=== PATIENT | male | born 1975 | race Caucasian/White ===

== ENCOUNTER 2018-12-05 07:58 | Inpatient (IN) | payer OTHER ==
[2018-12-05] MEDS: SODIUM CHLORIDE 0.9% 1L BAG IV* (08:05)
[2018-12-05 08:19] LABS: ADD MAN DIFF? NO
[2018-12-05] MEDS: FAMOTIDINE 20 MG INJ IV (08:19)
[2018-12-05] MEDS: SOD CHLORIDE 0.9% 1,000 ML IV ×4 (08:19→16:36)
[2018-12-05 08:26] LABS: WHITE BLOOD COUNT 8.2 10^3/ul (4.8-10.8)
[2018-12-05 08:26] LABS: BASOPHIL # 0.1 10^3/ul (0.0-0.1); BASOPHILS % 0.6 % (0.0-2.0); EOSINOPHILS # 0.2 10^3/ul (0.0-0.5); EOSINOPHILS % 2.7 % (0.0-7.0); HEMATOCRIT 37.8 % (42.0-52.0); HEMOGLOBIN 11.3 g/dl (14.0-18.0); LYMPHOCYTES # 2.2 10^3/ul (0.8-2.9); LYMPHOCYTES % 26.8 % (15.0-51.0); MEAN CORPUSCULAR HEMOGLOBIN 23.4 pg (29.0-33.0); MEAN CORPUSCULAR HGB CONC 29.9 g/dl (32.0-37.0); MEAN CORPUSCULAR VOLUME 78.3 fl (82.0-101.0); MEAN PLATELET VOLUME 9.4 fl (7.4-10.4); MONOCYTE # 0.4 10^3/ul (0.3-0.9); MONOCYTES % 5.3 % (0.0-11.0); NEUTROPHIL # 5.2 10^3/ul (1.6-7.5); NEUTROPHILS % 63.5 % (39.0-77.0); PLATELET COUNT 287 10^3/UL (140-415); RED BLOOD COUNT 4.83 10^6/ul (4.70-6.10); RED CELL DISTRIBUTION WIDTH 16.5 % (11.5-14.5)
[2018-12-05] MEDS: AMIODARONE 150 MG INJ IV (08:26)
[2018-12-05 08:46] LABS: PARTIAL THROMBOPLASTIN TIME 27.5 Sec (23.0-35.0); PROTIME 14.3 Sec (11.9-14.9); PT RATIO 1.1
[2018-12-05] MEDS: CEFEPIME 2GM/50 ML (PMX) 50 ML IVPB (09:02)
[2018-12-05 09:06] LABS: AMMONIA 24 umol/l (9-30)
[2018-12-05 09:10] LABS: LACTIC ACID 2.9 mmol/L (0.5-2.0)
[2018-12-05 09:13] LABS: ALANINE AMINOTRANSFERASE 24 IU/L (13-69); ALBUMIN 3.9 g/dl (3.3-4.9); ALBUMIN/GLOBULIN RATIO 1.18; ALKALINE PHOSPHATASE 102 IU/L (42-121); ANION GAP 11 (5-13); ASPARTATE AMINO TRANSFERASE 32 IU/L (15-46); BILIRUBIN,INDIRECT 1.3 mg/dl (0-1.1); BILIRUBIN,TOTAL 1.3 mg/dl (0.2-1.3); BLOOD UREA NITROGEN 19 mg/dl (7-20); CALCIUM 8.6 mg/dl (8.4-10.2); CARBON DIOXIDE 25 mmol/L (21-31); CHLORIDE 104 mmol/L (97-110); CREATINE KINASE 129 IU/L (23-200); CREATININE 1.17 mg/dl (0.61-1.24); Estimated GFR > 60 mL/min (>60); GLUCOSE 165 mg/dl (70-220); POTASSIUM 3.4 mmol/L (3.5-5.1); SODIUM 140 mmol/L (135-144); TOTAL PROTEIN 7.2 g/dl (6.1-8.1)
[2018-12-05 09:16] LABS: ACETAMINOPHEN < 10.0 ug/ml (10.0-30.0); ETHANOL < 10.0 mg/dl (0-0); SALICYLATE < 1.0 mg/dl (5.0-30.0)
[2018-12-05 09:24] LABS: CK INDEX 2.2; CK-MB 2.84 ng/ml (0.0-2.4); TROPONIN-I 0.025 ng/ml (0.000-0.120)
[2018-12-05 09:37] LABS: D-DIMER 3965.54 ng/ml (<460)
[2018-12-05] MEDS: IOHEXOL 100 ML (09:43)
[2018-12-05] MEDS: VANCOMYCIN 1 GM (PMX) 250 ML IVPB (09:52)
[2018-12-05 09:53] LABS: FREE THYROXINE INDEX (Calc) 2.18 ug/ml (0.65-3.89); T3 UPTAKE 33.6 % (23.5-40.5); T4 (THYROXINE) 6.5 ug/dl (5.5-11.0)
[2018-12-05] MEDS: FENTAnyl 50 MCG/ML VIAL IV (10:01)
[2018-12-05] MEDS: SOD CHLORIDE 0.9% 100 ML (10:31)
[2018-12-05] MEDS ORDERED: ACETAMINOPHEN 325 MG TAB PO (11:00)
[2018-12-05] MEDS ORDERED: ONDANSETRON 4 MG INJ IV (11:00)
[2018-12-05] MEDS ORDERED: NITROGLYCERIN (SL) 0.4 MG TAB SL (11:00)
[2018-12-05] MEDS ORDERED: NACL 0.9% 3 ML SYG IV (11:00)
[2018-12-05] MEDS ORDERED: morphine 2 MG INJ IV (11:00)
[2018-12-05 11:17] LABS: LACTIC ACID 1.8 mmol/L (0.5-2.0)
[2018-12-05 11:22] LABS: BARBITURATES Negative (NEGATIVE); BENZODIAZEPINES Negative (NEGATIVE); CANNABINOIDS Negative (NEGATIVE); COCAINE Negative (NEGATIVE); OPIATES Negative (NEGATIVE)
[2018-12-05 11:26] LABS: AADO2 Arterial 59.9 mmHg (7.0-24.0); Arterial Base Excess -5.6 mmol/L (-3.0-3); Arterial Blood Gas Oxygen Sat 98.1 mmHG (95.0-98.0); Arterial COHb 0.9 % (0.0-3.0); Arterial Fraction of Oxyhgb 96.9 % (93.0-99.0); Arterial HCO3 19.7 mmol/L (22.0-26.0); Arterial MetHb 0.3 % (0.0-1.5); Arterial pCO2 37.8 mmhg (35-45); MODE NASAL CANNULA; Site Right Brachial
[2018-12-05 11:27] LABS: ADD UMIC YES; UR ASCORBIC ACID NEGATIVE (NEGATIVE); UR BACTERIA FEW /HPF (NONE SEEN); UR BILIRUBIN (Dip) NEGATIVE (NEGATIVE); UR BLOOD (Dip) NEGATIVE (NEGATIVE); UR CLARITY SLIGHTLY CLOUDY (CLEAR); UR COLOR YELLOW (YELLOW); UR GLUCOSE (Dip) 1+ mg/dL (NEGATIVE); UR KETONES (Dip) NEGATIVE (NEGATIVE); UR LEUKOCYTE ESTERASE (Dip) NEGATIVE Leu/ul (NEGATIVE); UR NITRITE (Dip) NEGATIVE (NEGATIVE); UR RBC 15 /HPF (0-5); UR SPECIFIC GRAVITY (Dip) 1.038 (1.003-1.030); UR TOTAL PROTEIN (Dip) 2+ mg/dl (NEGATIVE); UR UROBILINOGEN (Dip) NEGATIVE (NEGATIVE); UR WBC 17 /HPF (0-5)
[2018-12-05 11:33] LABS: AMPHETAMINE/METHAMPHETAMINE positive (NEGATIVE)
[2018-12-05] MEDS: ASPIRIN 325 MG TAB PO (12:06)
[2018-12-05] MEDS: POTASSIUM CHLORIDE 100 ML IVPB (12:06)
[2018-12-05 13:09] LABS: TROPONIN-I 0.094 ng/ml (0.000-0.120)
[2018-12-05] MEDS: MAGNESIUM SULFATE 2 GM/50 ML 50 ML IVPB (13:25)
[2018-12-05] MEDS: POTASSIUM CHLORIDE 20 MEQ POWDER FOR ORAL SOLN PO (13:25)
[2018-12-05] MEDS: HYDROCODONE/APAP (5/325) TAB PO (13:26)
[2018-12-05 19:05] LABS: TROPONIN-I 0.108 ng/ml (0.000-0.120)
[2018-12-05] MEDS: ATORVASTATIN 80 MG TAB PO (20:37)
[2018-12-06 01:29] LABS: TROPONIN-I 0.111 ng/ml (0.000-0.120)
[2018-12-06] MEDS: HYDROCODONE/APAP (5/325) TAB PO (03:11)
[2018-12-06 05:00] LABS: ADD MAN DIFF? NO
[2018-12-06 05:06] LABS: BASOPHIL # 0.1 10^3/ul (0.0-0.1); BASOPHILS % 0.8 % (0.0-2.0); EOSINOPHILS # 0.1 10^3/ul (0.0-0.5); EOSINOPHILS % 0.6 % (0.0-7.0); HEMATOCRIT 35.1 % (42.0-52.0); HEMOGLOBIN 11.1 g/dl (14.0-18.0); LYMPHOCYTES # 2.1 10^3/ul (0.8-2.9); LYMPHOCYTES % 20.3 % (15.0-51.0); MEAN CORPUSCULAR HEMOGLOBIN 23.9 pg (29.0-33.0); MEAN CORPUSCULAR HGB CONC 31.6 g/dl (32.0-37.0); MEAN CORPUSCULAR VOLUME 75.6 fl (82.0-101.0); MEAN PLATELET VOLUME 9.5 fl (7.4-10.4); MONOCYTE # 0.7 10^3/ul (0.3-0.9); NEUTROPHIL # 7.3 10^3/ul (1.6-7.5); PLATELET COUNT 294 10^3/UL (140-415); RED BLOOD COUNT 4.64 10^6/ul (4.70-6.10); RED CELL DISTRIBUTION WIDTH 17.2 % (11.5-14.5)
[2018-12-06 05:06] LABS: WHITE BLOOD COUNT 10.2 10^3/ul (4.8-10.8)
[2018-12-06 05:29] LABS: CREATINE KINASE 163 IU/L (23-200)
[2018-12-06 05:38] LABS: ALANINE AMINOTRANSFERASE 52 IU/L (13-69); ALBUMIN 3.7 g/dl (3.3-4.9); ALBUMIN/GLOBULIN RATIO 1.19; ALKALINE PHOSPHATASE 105 IU/L (42-121); ANION GAP 9 (5-13); ASPARTATE AMINO TRANSFERASE 46 IU/L (15-46); BILIRUBIN,INDIRECT 2.9 mg/dl (0-1.1); BILIRUBIN,TOTAL 2.9 mg/dl (0.2-1.3); BLOOD UREA NITROGEN 22 mg/dl (7-20); CALCIUM 8.8 mg/dl (8.4-10.2); CARBON DIOXIDE 21 mmol/L (21-31); CHLORIDE 107 mmol/L (97-110); CHOL/HDL RATIO 4.8 RATIO; CHOLESTEROL 131 mg/dl (100-200); CREATININE 1.18 mg/dl (0.61-1.24); Estimated GFR > 60 mL/min (>60); GLUCOSE 117 mg/dl (70-220); HDL CHOLESTEROL 27 mg/dl (27-67); LDL CHOLESTEROL,CALCULATED 87 mg/dl; MAGNESIUM 2.4 mg/dl (1.7-2.5); SODIUM 137 mmol/L (135-144); TOTAL PROTEIN 6.8 g/dl (6.1-8.1); TRIGLYCERIDES 85 mg/dl (0-149)
[2018-12-06 05:39] LABS: B-TYPE NATRIURETIC PEPTIDE 4380 PG/ML (0-125)
[2018-12-06 05:41] LABS: CK INDEX 1.7; TROPONIN-I 0.081 ng/ml (0.000-0.120)
[2018-12-06] MEDS: PANTOPRAZOLE 40 MG INJ IV (05:41)
[2018-12-06 05:44] LABS: CK-MB 2.77 ng/ml (0.0-2.4)
[2018-12-06 07:45] LABS: HEMOGLOBIN A1C 5.8 % (0-5.9)
[2018-12-06] MEDS: ASPIRIN 81 MG TAB PO (08:56)
[2018-12-06 09:01] LABS: THYROID STIMULATING HORMONE 0.464 MIU/L (0.465-4.680)
[2018-12-06] MEDS: SOD CHLORIDE 0.9% 1,000 ML IV (15:52)
[2018-12-06] MEDS ORDERED: morphine LIQ (10 MG/5 ML) CUP PO (16:00)
[2018-12-06] MEDS: LORAZEPAM 2 MG INJ IV (16:35)
[2018-12-06] MEDS: ATORVASTATIN 80 MG TAB PO (20:35)
[2018-12-06] MEDS: ZOLPIDEM 5 MG TAB PO (21:21)
[2018-12-07] MEDS: LORAZEPAM 2 MG INJ IV ×2 (01:56→09:29)
[2018-12-07 05:41] LABS: ADD MAN DIFF? NO
[2018-12-07 05:44] LABS: WHITE BLOOD COUNT 9.8 10^3/ul (4.8-10.8)
[2018-12-07 05:44] LABS: BASOPHIL # 0.1 10^3/ul (0.0-0.1); BASOPHILS % 0.8 % (0.0-2.0); EOSINOPHILS # 0.1 10^3/ul (0.0-0.5); EOSINOPHILS % 1.1 % (0.0-7.0); HEMATOCRIT 33.9 % (42.0-52.0); HEMOGLOBIN 10.7 g/dl (14.0-18.0); LYMPHOCYTES # 2.3 10^3/ul (0.8-2.9); LYMPHOCYTES % 23.6 % (15.0-51.0); MEAN CORPUSCULAR HEMOGLOBIN 23.9 pg (29.0-33.0); MEAN CORPUSCULAR HGB CONC 31.6 g/dl (32.0-37.0); MEAN CORPUSCULAR VOLUME 75.8 fl (82.0-101.0); MEAN PLATELET VOLUME 9.9 fl (7.4-10.4); MONOCYTE # 0.6 10^3/ul (0.3-0.9); MONOCYTES % 6.1 % (0.0-11.0); NEUTROPHIL # 6.6 10^3/ul (1.6-7.5); NEUTROPHILS % 67.8 % (39.0-77.0); PLATELET COUNT 297 10^3/UL (140-415); RED BLOOD COUNT 4.47 10^6/ul (4.70-6.10); RED CELL DISTRIBUTION WIDTH 17.4 % (11.5-14.5)
[2018-12-07 06:07] LABS: ANION GAP 13 (5-13); BLOOD UREA NITROGEN 21 mg/dl (7-20); CARBON DIOXIDE 24 mmol/L (21-31); CHLORIDE 100 mmol/L (97-110); CREATININE 1.19 mg/dl (0.61-1.24); Estimated GFR > 60 mL/min (>60); GLUCOSE 129 mg/dl (70-220); MAGNESIUM 2.1 mg/dl (1.7-2.5); PHOSPHORUS 2.7 mg/dl (2.5-4.9); POTASSIUM 4.7 mmol/L (3.5-5.1); SODIUM 137 mmol/L (135-144)
[2018-12-07] MEDS: PANTOPRAZOLE (EC) 40 MG TAB PO (06:45)
[2018-12-07] MEDS: ASPIRIN 81 MG TAB PO (09:05)
[2018-12-07] MEDS: DIGOXIN 0.125 MG TAB PO (13:25)
[2018-12-07] MEDS: HYDROCODONE/APAP (5/325) TAB PO (15:23)
[2018-12-07] MEDS: ATORVASTATIN 80 MG TAB PO (21:00)
[2018-12-08] MEDS: HYDROCODONE/APAP (5/325) TAB PO ×2 (02:13→20:56)
[2018-12-08 05:26] LABS: WHITE BLOOD COUNT 7.8 10^3/ul (4.8-10.8)
[2018-12-08 05:26] LABS: ADD MAN DIFF? NO; BASOPHIL # 0.1 10^3/ul (0.0-0.1); BASOPHILS % 0.8 % (0.0-2.0); EOSINOPHILS # 0.2 10^3/ul (0.0-0.5); EOSINOPHILS % 2.4 % (0.0-7.0); HEMATOCRIT 32.9 % (42.0-52.0); HEMOGLOBIN 10.4 g/dl (14.0-18.0); LYMPHOCYTES # 1.7 10^3/ul (0.8-2.9); LYMPHOCYTES % 21.6 % (15.0-51.0); MEAN CORPUSCULAR HEMOGLOBIN 23.8 pg (29.0-33.0); MEAN CORPUSCULAR HGB CONC 31.6 g/dl (32.0-37.0); MEAN CORPUSCULAR VOLUME 75.3 fl (82.0-101.0); MEAN PLATELET VOLUME 8.7 fl (7.4-10.4); MONOCYTE # 0.5 10^3/ul (0.3-0.9); MONOCYTES % 6.8 % (0.0-11.0); NEUTROPHIL # 5.3 10^3/ul (1.6-7.5); NEUTROPHILS % 68.1 % (39.0-77.0); PLATELET COUNT 243 10^3/UL (140-415); RED BLOOD COUNT 4.37 10^6/ul (4.70-6.10); RED CELL DISTRIBUTION WIDTH 17.4 % (11.5-14.5)
[2018-12-08 05:47] LABS: INR 1.29; PROTIME 16.2 Sec (11.9-14.9); PT RATIO 1.3
[2018-12-08 06:15] LABS: ALBUMIN 3.3 g/dl (3.3-4.9); ANION GAP 9 (5-13); BLOOD UREA NITROGEN 20 mg/dl (7-20); CALCIUM 8.7 mg/dl (8.4-10.2); CARBON DIOXIDE 22 mmol/L (21-31); CHLORIDE 106 mmol/L (97-110); CREATININE 1.11 mg/dl (0.61-1.24); GLUCOSE 95 mg/dl (70-220); MAGNESIUM 1.9 mg/dl (1.7-2.5); PHOSPHORUS 3.2 mg/dl (2.5-4.9); POTASSIUM 4.6 mmol/L (3.5-5.1); SODIUM 137 mmol/L (135-144)
[2018-12-08 06:27] LABS: ALANINE AMINOTRANSFERASE 130 IU/L (13-69); ALBUMIN 3.4 g/dl (3.3-4.9); ALBUMIN/GLOBULIN RATIO 1.13; ALKALINE PHOSPHATASE 100 IU/L (42-121); ANION GAP 10 (5-13); ASPARTATE AMINO TRANSFERASE 86 IU/L (15-46); BLOOD UREA NITROGEN 21 mg/dl (7-20); CALCIUM 8.7 mg/dl (8.4-10.2); CARBON DIOXIDE 22 mmol/L (21-31); CHLORIDE 104 mmol/L (97-110); CREATININE 1.13 mg/dl (0.61-1.24); Estimated GFR > 60 mL/min (>60); GLUCOSE 95 mg/dl (70-220); POTASSIUM 4.6 mmol/L (3.5-5.1); SODIUM 136 mmol/L (135-144); TOTAL PROTEIN 6.4 g/dl (6.1-8.1)
[2018-12-08] MEDS: PANTOPRAZOLE (EC) 40 MG TAB PO (06:49)
[2018-12-08] MEDS: SOD CHLORIDE 0.9% 1,000 ML IV ×4 (10:58→22:00)
[2018-12-08 11:18] LABS: IRON 19 ug/dl (35-150)
[2018-12-08 11:28] LABS: % IRON SATURATION 5 % SAT (22-52); TOTAL IRON BINDING CAPACITY 411 ug/dl (241-421)
[2018-12-08] MEDS: ASPIRIN 81 MG TAB PO (11:28)
[2018-12-08] MEDS ORDERED: VERAPAMIL 5 MG INJ (14:32)
[2018-12-08] MEDS ORDERED: HEPARIN 1000 UNITS/ML 10 ML INJ (14:32)
[2018-12-08] MEDS ORDERED: IODIXANOL LOCM 100 ML BTL (14:32)
[2018-12-08] MEDS ORDERED: LIDOCAINE 1% (MDV) 20 ML INJ (14:32)
[2018-12-08] MEDS ORDERED: NITROGLYCERIN (IC) 100 MCG/ML INJ (14:32)
[2018-12-08] MEDS ORDERED: FENTAnyl 50 MCG/ML VIAL (15:15)
[2018-12-08] MEDS: LORAZEPAM 2 MG INJ IV (16:32)
[2018-12-08] MEDS: DIGOXIN 0.125 MG TAB PO (18:50)
[2018-12-08] MEDS: ATORVASTATIN 80 MG TAB PO (20:56)
[2018-12-09] MEDS: PANTOPRAZOLE (EC) 40 MG TAB PO (05:59)
[2018-12-09 12:26] LABS: ADD MAN DIFF? NO; BASOPHIL # 0.1 10^3/ul (0.0-0.1); BASOPHILS % 0.7 % (0.0-2.0); EOSINOPHILS # 0.2 10^3/ul (0.0-0.5); EOSINOPHILS % 2.7 % (0.0-7.0); HEMATOCRIT 36.1 % (42.0-52.0); HEMOGLOBIN 10.9 g/dl (14.0-18.0); LYMPHOCYTES # 1.6 10^3/ul (0.8-2.9); LYMPHOCYTES % 21.2 % (15.0-51.0); MEAN CORPUSCULAR HEMOGLOBIN 23.6 pg (29.0-33.0); MEAN CORPUSCULAR HGB CONC 30.2 g/dl (32.0-37.0); MEAN CORPUSCULAR VOLUME 78.3 fl (82.0-101.0); MEAN PLATELET VOLUME 9.8 fl (7.4-10.4); MONOCYTE # 0.5 10^3/ul (0.3-0.9); MONOCYTES % 6.6 % (0.0-11.0); NEUTROPHIL # 5.1 10^3/ul (1.6-7.5); NEUTROPHILS % 68.4 % (39.0-77.0); PLATELET COUNT 292 10^3/UL (140-415); RED BLOOD COUNT 4.61 10^6/ul (4.70-6.10); RED CELL DISTRIBUTION WIDTH 18.2 % (11.5-14.5)
[2018-12-09 12:26] LABS: WHITE BLOOD COUNT 7.4 10^3/ul (4.8-10.8)
[2018-12-09 12:36] LABS: ALANINE AMINOTRANSFERASE 147 IU/L (13-69); ALBUMIN 3.8 g/dl (3.3-4.9); ALBUMIN/GLOBULIN RATIO 1.15; ALKALINE PHOSPHATASE 140 IU/L (42-121); ANION GAP 8 (5-13); ASPARTATE AMINO TRANSFERASE 90 IU/L (15-46); BILIRUBIN,INDIRECT 2.1 mg/dl (0-1.1); BILIRUBIN,TOTAL 2.1 mg/dl (0.2-1.3); BLOOD UREA NITROGEN 20 mg/dl (7-20); CARBON DIOXIDE 23 mmol/L (21-31); CHLORIDE 106 mmol/L (97-110); CREATININE 1.28 mg/dl (0.61-1.24); Estimated GFR > 60 mL/min (>60); GLUCOSE 113 mg/dl (70-220); POTASSIUM 5.1 mmol/L (3.5-5.1); SODIUM 137 mmol/L (135-144); TOTAL PROTEIN 7.1 g/dl (6.1-8.1)
== END 2018-12-09 06:50 | disposition left against medical advice (07) | DRG 280 ==
LOC: 6WM 12-06 17:44 → E/R 07:58 → ICU 11:05
PROVIDERS: Internal Medicine
PROC: 4A023N7 Measurement of Cardiac Sampling and Pressure, Left Heart, Percutaneous Approach (ICD-10-PCS; principal; 2018-12-08 13:30)
PROC: B211YZZ Fluoroscopy of Multiple Coronary Arteries using Other Contrast (ICD-10-PCS; 2018-12-08 13:30)
PROC: B215YZZ Fluoroscopy of Left Heart using Other Contrast (ICD-10-PCS; 2018-12-08 13:30)
DX: I49.01 Ventricular fibrillation (principal); I21.4 Non-ST elevation (NSTEMI) myocardial infarction; I50.41 Acute combined systolic (congestive) and diastolic (congestive) heart failure; I46.2 Cardiac arrest due to underlying cardiac condition; I11.0 Hypertensive heart disease with heart failure; I42.9 Cardiomyopathy, unspecified; I45.81 Long QT syndrome; I25.10 Atherosclerotic heart disease of native coronary artery without angina pectoris; D64.9 Anemia, unspecified; F17.210 Nicotine dependence, cigarettes, uncomplicated; F15.10 Other stimulant abuse, uncomplicated; Z79.82 Long term (current) use of aspirin; Z91.14 Patient's other noncompliance with medication regimen; Z53.21 Procedure and treatment not carried out due to patient leaving prior to being seen by health care provider
CPT/HCPCS: 36600; 70450; 71045; 71275; 80048; 80053; 80061; 80069; 80307; 81001; 82140; 82550; 82553; 82803; 82962; 83036; 83540; 83605; 83735; 83880; 84100; 84436; 84443; 84479; 84484; 85025; 85378; 85610; 85730; 87040-91; 87081; 87086; 93005; 93306; 93458; 96361; 96365; 96375; 99291-25

== ENCOUNTER 2018-12-09 08:09 | Emergency (ER) | payer OTHER ==
[2018-12-09] MEDS ORDERED: ACETAMINOPHEN 325 MG TAB PO (08:30)
[2018-12-09] MEDS ORDERED: DOCUSATE SODIUM 100 MG CAP PO (08:30)
[2018-12-09] MEDS ORDERED: MAGNESIUM HYDROXIDE 30ML CUP PO (08:30)
[2018-12-09] MEDS ORDERED: NACL 0.9% 3 ML SYG IV (08:30)
[2018-12-09] MEDS ORDERED: ONDANSETRON 4 MG INJ IV (08:30)
[2018-12-09] MEDS ORDERED: SPIRONOLACTONE 25 MG TAB PO (09:00)
[2018-12-09] MEDS ORDERED: HYDROCODONE/APAP (5/325) TAB PO (09:00)
[2018-12-09] MEDS ORDERED: LORAZEPAM 2 MG INJ IV (09:00)
[2018-12-09] MEDS ORDERED: morphine 2 MG INJ IV (09:00)
[2018-12-09] MEDS: LISINOPRIL 10 MG TAB PO (09:51)
[2018-12-09] MEDS: FUROSEMIDE 40 MG TAB PO (09:52)
[2018-12-09] MEDS: ASPIRIN (EC) 81 MG TAB PO (09:52)
[2018-12-09] MEDS: DEXTROSE 5%-0.45% NACL 1,000 ML IV (09:53)
[2018-12-09] MEDS ORDERED: DIGOXIN 0.125 MG TAB PO (13:00)
[2018-12-09] MEDS ORDERED: ATORVASTATIN 80 MG TAB PO (21:00)
[2018-12-10] MEDS ORDERED: PANTOPRAZOLE (EC) 40 MG TAB PO (06:00)
== END 2018-12-09 12:37 | disposition left against medical advice (07) ==
LOC: E/R 08:09
DX: I42.9 Cardiomyopathy, unspecified (principal); I10 Essential (primary) hypertension; I50.9 Heart failure, unspecified; Z79.82 Long term (current) use of aspirin; Z87.891 Personal history of nicotine dependence
CPT/HCPCS: 36415; 99283; J7042

== ENCOUNTER 2018-12-09 13:29 | Inpatient (IN) | payer OTHER ==
[2018-12-09] MEDS ORDERED: morphine 2 MG INJ IV (15:00)
[2018-12-09] MEDS ORDERED: MAGNESIUM HYDROXIDE 30ML CUP PO (15:00)
[2018-12-09] MEDS ORDERED: ACETAMINOPHEN 325 MG TAB PO (15:00)
[2018-12-09] MEDS ORDERED: NITROGLYCERIN (SL) 0.4 MG TAB SL (15:00)
[2018-12-09] MEDS ORDERED: DOCUSATE SODIUM 100 MG CAP PO (15:00)
[2018-12-09] MEDS ORDERED: ONDANSETRON 4 MG INJ IV (15:00)
[2018-12-09] MEDS ORDERED: NACL 0.9% 3 ML SYG IV (15:00)
[2018-12-09 17:10] LABS: AMPHETAMINE/METHAMPHETAMINE Negative (NEGATIVE); BARBITURATES Negative (NEGATIVE); BENZODIAZEPINES Negative (NEGATIVE); CANNABINOIDS Negative (NEGATIVE); COCAINE Negative (NEGATIVE); OPIATES Negative (NEGATIVE)
[2018-12-09] MEDS: SOD CHLORIDE 0.9% 1,000 ML IV (22:39)
[2018-12-10] MEDS: traZODone 50 MG TAB PO (00:57)
[2018-12-10] MEDS: PANTOPRAZOLE 40 MG INJ IV (05:45)
[2018-12-10] MEDS: LISINOPRIL 10 MG TAB PO (08:18)
[2018-12-10 08:42] LABS: ADD MAN DIFF? NO
[2018-12-10 08:47] LABS: WHITE BLOOD COUNT 7.7 10^3/ul (4.8-10.8)
[2018-12-10 08:47] LABS: BASOPHIL # 0.1 10^3/ul (0.0-0.1); BASOPHILS % 0.6 % (0.0-2.0); EOSINOPHILS # 0.2 10^3/ul (0.0-0.5); EOSINOPHILS % 2.1 % (0.0-7.0); HEMATOCRIT 34.4 % (42.0-52.0); HEMOGLOBIN 10.9 g/dl (14.0-18.0); LYMPHOCYTES # 1.6 10^3/ul (0.8-2.9); LYMPHOCYTES % 20.4 % (15.0-51.0); MEAN CORPUSCULAR HEMOGLOBIN 23.7 pg (29.0-33.0); MEAN CORPUSCULAR HGB CONC 31.7 g/dl (32.0-37.0); MEAN CORPUSCULAR VOLUME 74.8 fl (82.0-101.0); MEAN PLATELET VOLUME 9.7 fl (7.4-10.4); MONOCYTE # 0.6 10^3/ul (0.3-0.9); MONOCYTES % 7.5 % (0.0-11.0); NEUTROPHIL # 5.3 10^3/ul (1.6-7.5); PLATELET COUNT 304 10^3/UL (140-415); RED CELL DISTRIBUTION WIDTH 18.3 % (11.5-14.5)
[2018-12-10 09:22] LABS: ALANINE AMINOTRANSFERASE 120 IU/L (13-69); ALBUMIN 3.7 g/dl (3.3-4.9); ALBUMIN/GLOBULIN RATIO 1.12; ALKALINE PHOSPHATASE 150 IU/L (42-121); ANION GAP 11 (5-13); ASPARTATE AMINO TRANSFERASE 55 IU/L (15-46); BILIRUBIN,INDIRECT 1.9 mg/dl (0-1.1); BILIRUBIN,TOTAL 1.9 mg/dl (0.2-1.3); BLOOD UREA NITROGEN 18 mg/dl (7-20); CALCIUM 9.3 mg/dl (8.4-10.2); CARBON DIOXIDE 24 mmol/L (21-31); CHLORIDE 105 mmol/L (97-110); CREATININE 1.17 mg/dl (0.61-1.24); Estimated GFR > 60 mL/min (>60); GLUCOSE 96 mg/dl (70-220); MAGNESIUM 1.9 mg/dl (1.7-2.5); POTASSIUM 4.3 mmol/L (3.5-5.1); SODIUM 140 mmol/L (135-144)
[2018-12-10] MEDS: DIGOXIN 0.125 MG TAB PO (12:36)
[2018-12-11] MEDS: DEXTROSE 5%-0.9% NACL 1,000 ML IV (02:07)
[2018-12-11] MEDS: PANTOPRAZOLE 40 MG INJ IV (06:06)
[2018-12-11 06:09] LABS: ADD MAN DIFF? NO
[2018-12-11 06:15] LABS: BASOPHIL # 0.1 10^3/ul (0.0-0.1); BASOPHILS % 0.6 % (0.0-2.0); EOSINOPHILS # 0.3 10^3/ul (0.0-0.5); EOSINOPHILS % 3.3 % (0.0-7.0); HEMATOCRIT 36.2 % (42.0-52.0); HEMOGLOBIN 11.2 g/dl (14.0-18.0); LYMPHOCYTES # 1.5 10^3/ul (0.8-2.9); LYMPHOCYTES % 18.4 % (15.0-51.0); MEAN CORPUSCULAR HEMOGLOBIN 23.4 pg (29.0-33.0); MEAN CORPUSCULAR HGB CONC 30.9 g/dl (32.0-37.0); MEAN CORPUSCULAR VOLUME 75.7 fl (82.0-101.0); MEAN PLATELET VOLUME 9.6 fl (7.4-10.4); MONOCYTE # 0.6 10^3/ul (0.3-0.9); MONOCYTES % 7.5 % (0.0-11.0); NEUTROPHIL # 5.7 10^3/ul (1.6-7.5); NEUTROPHILS % 69.8 % (39.0-77.0); PLATELET COUNT 324 10^3/UL (140-415); RED BLOOD COUNT 4.78 10^6/ul (4.70-6.10); RED CELL DISTRIBUTION WIDTH 17.7 % (11.5-14.5)
[2018-12-11 06:15] LABS: WHITE BLOOD COUNT 8.2 10^3/ul (4.8-10.8)
[2018-12-11 06:37] LABS: INR 0.99; PROTIME 13.2 Sec (11.9-14.9)
[2018-12-11 06:45] LABS: B-TYPE NATRIURETIC PEPTIDE 8010 PG/ML (0-125)
[2018-12-11 06:47] LABS: ALANINE AMINOTRANSFERASE 96 IU/L (13-69); ALBUMIN 3.8 g/dl (3.3-4.9); ALBUMIN/GLOBULIN RATIO 1.11; ALKALINE PHOSPHATASE 135 IU/L (42-121); ANION GAP 10 (5-13); ASPARTATE AMINO TRANSFERASE 40 IU/L (15-46); BILIRUBIN,INDIRECT 1.1 mg/dl (0-1.1); BILIRUBIN,TOTAL 1.1 mg/dl (0.2-1.3); BLOOD UREA NITROGEN 18 mg/dl (7-20); CARBON DIOXIDE 25 mmol/L (21-31); CHLORIDE 104 mmol/L (97-110); CREATININE 1.04 mg/dl (0.61-1.24); Estimated GFR > 60 mL/min (>60); GLUCOSE 105 mg/dl (70-220); MAGNESIUM 1.9 mg/dl (1.7-2.5); POTASSIUM 4.4 mmol/L (3.5-5.1); SODIUM 139 mmol/L (135-144); TOTAL PROTEIN 7.2 g/dl (6.1-8.1)
[2018-12-11 07:02] LABS: DIGOXIN 0.5 ng/ml (1.0-2.0)
[2018-12-11] MEDS: LISINOPRIL 10 MG TAB PO (08:44)
[2018-12-11] MEDS ORDERED: MIDAZOLAM 1 MG/ML 2 ML INJ ×2 (12:45→13:36)
[2018-12-11] MEDS ORDERED: FENTAnyl 50 MCG/ML VIAL ×2 (12:45→13:39)
[2018-12-11] MEDS ORDERED: PROPOFOL 20 ML (12:45)
[2018-12-11] MEDS: DIGOXIN 0.125 MG TAB PO (13:00)
[2018-12-11] MEDS ORDERED: IODIXANOL LOCM 50 ML BTL (13:05)
[2018-12-11] MEDS ORDERED: CEFAZOLIN 1 GM/50 ML (PMX) 50 ML IVPB ×2 (13:10)
[2018-12-11] MEDS ORDERED: LIDOCAINE 1%/EPI (1:100,000) (MDV) 20 ML (13:18)
[2018-12-11] MEDS ORDERED: POLYMYXIN/BACITRACIN 1L IRRIG IRR ×2 (13:30→14:00)
[2018-12-11] MEDS: FUROSEMIDE 20 MG INJ IV (18:23)
[2018-12-11] MEDS: HYDROCODONE/APAP (5/325) TAB PO (18:49)
[2018-12-11] MEDS: CEFAZOLIN 1 GM/50 ML (PMX) 50 ML IVPB (21:44)
[2018-12-11] MEDS: morphine 2 MG INJ IV (23:22)
[2018-12-12] MEDS: morphine 2 MG INJ IV (02:13)
[2018-12-12] MEDS: traZODone 50 MG TAB PO (02:53)
[2018-12-12] MEDS: PANTOPRAZOLE (EC) 40 MG TAB PO (06:45)
[2018-12-12] MEDS: CEFAZOLIN 1 GM/50 ML (PMX) 50 ML IVPB ×2 (06:45→13:43)
[2018-12-12] MEDS: HYDROCODONE/APAP (5/325) TAB PO ×2 (08:49→13:41)
[2018-12-12] MEDS: LISINOPRIL 10 MG TAB PO (08:50)
[2018-12-12] MEDS: DIGOXIN 0.125 MG TAB PO (13:42)
[2018-12-12] MEDS: morphine LIQ (10 MG/5 ML) CUP PO (19:03)
[2018-12-13] MEDS: HYDROCODONE/APAP (5/325) TAB PO (00:10)
[2018-12-13] MEDS: morphine 2 MG INJ IV (05:11)
[2018-12-13] MEDS: PANTOPRAZOLE (EC) 40 MG TAB PO (06:06)
[2018-12-13] MEDS: LISINOPRIL 10 MG TAB PO (08:51)
[2018-12-13] MEDS: DIGOXIN 0.125 MG TAB PO (13:21)
[2018-12-13] MEDS: morphine LIQ (10 MG/5 ML) CUP PO (16:01)
== END 2018-12-13 17:06 | disposition home or self-care (01) | DRG 245 ==
LOC: E/R 13:29 → TEL 13:44
PROC: 0JH608Z Insertion of Defibrillator Generator into Chest Subcutaneous Tissue and Fascia, Open Approach (ICD-10-PCS; principal; 2018-12-11)
PROC: 0JH60PZ Insertion of Cardiac Rhythm Related Device into Chest Subcutaneous Tissue and Fascia, Open Approach (ICD-10-PCS; 2018-12-11)
DX: I42.9 Cardiomyopathy, unspecified (principal); I50.41 Acute combined systolic (congestive) and diastolic (congestive) heart failure; D50.9 Iron deficiency anemia, unspecified; F17.200 Nicotine dependence, unspecified, uncomplicated; Z86.74 Personal history of sudden cardiac arrest
CPT/HCPCS: 33249; 71045; 80053; 80162; 80307; 83735; 83880; 85025; 85610; 93005; 99285-25

== ENCOUNTER 2018-12-15 08:40 | Emergency (ER) | payer SELFPAY, OTHER | END 2018-12-15 10:54 | disposition left against medical advice (07) | LOC: E/R 08:40 | DX: Z53.21 Procedure and treatment not carried out due to patient leaving prior to being seen by health care provider (principal) ==

== ENCOUNTER 2018-12-15 14:43 | Inpatient (IN) | payer OTHER ==
[2018-12-15] MEDS ORDERED: SODIUM CHLORIDE 0.9% 1L BAG IV* (15:20)
[2018-12-15 15:36] LABS: HEMATOCRIT 35.6 % (42.0-52.0); MEAN CORPUSCULAR HEMOGLOBIN 23.2 pg (29.0-33.0); MEAN CORPUSCULAR HGB CONC 30.9 g/dl (32.0-37.0); MEAN CORPUSCULAR VOLUME 74.9 fl (82.0-101.0); MEAN PLATELET VOLUME 8.6 fl (7.4-10.4); PLATELET COUNT 367 10^3/UL (140-415); RED BLOOD COUNT 4.75 10^6/ul (4.70-6.10); RED CELL DISTRIBUTION WIDTH 18.3 % (11.5-14.5)
[2018-12-15 15:36] LABS: WHITE BLOOD COUNT 6.4 10^3/ul (4.8-10.8)
[2018-12-15 15:42] LABS: ADD MAN DIFF? YES
[2018-12-15 15:55] LABS: INR 1.07; PT RATIO 1.1
[2018-12-15 15:56] LABS: ALANINE AMINOTRANSFERASE 40 IU/L (13-69); ALBUMIN 4.4 g/dl (3.3-4.9); ALBUMIN/GLOBULIN RATIO 1.22; ALKALINE PHOSPHATASE 115 IU/L (42-121); ANION GAP 14 (5-13); ASPARTATE AMINO TRANSFERASE 38 IU/L (15-46); BILIRUBIN,INDIRECT 0.7 mg/dl (0-1.1); BILIRUBIN,TOTAL 0.7 mg/dl (0.2-1.3); BLOOD UREA NITROGEN 15 mg/dl (7-20); CALCIUM 9.3 mg/dl (8.4-10.2); CARBON DIOXIDE 27 mmol/L (21-31); CHLORIDE 97 mmol/L (97-110); CREATININE 1.03 mg/dl (0.61-1.24); Estimated GFR > 60 mL/min (>60); GLUCOSE 92 mg/dl (70-220); PARTIAL THROMBOPLASTIN TIME 30.8 Sec (23.0-35.0); POTASSIUM 4.4 mmol/L (3.5-5.1); SODIUM 138 mmol/L (135-144)
[2018-12-15] MEDS: ACETAMINOPHEN 325 MG TAB PO ×2 (16:01→23:58)
[2018-12-15 17:47] LABS: ANISOCYTOSIS 2+ (0-0); BAND NEUTROPHILS #M 0.3 10^3/ul (0.0-0.6); BAND NEUTROPHILS % (M) 5 % (0-4); BASOPHIL #M 0.1 10^3/ul (0.0-0.0); BASOPHILS % (M) 2 % (0-2); HYPOCHROMASIA 1+ (0-0); LYMPHOCYTES #M 0.5 10^3/ul (0.8-2.9); LYMPHOCYTES % (M) 9 % (15-51); MICROCYTOSIS 2+ (0-0); MONOCYTE #M 0.8 10^3/ul (0.3-0.9); MONOCYTES % (M) 14 % (0-11); PLATELET ESTIMATE NORMAL; POIKILOCYTOSIS 1+ (0-0); POLYCHROMASIA 1+ (0-0); REACTIVE LYMPHOCYTES% (M) 1 % (0-0); SEG NEUT #M 4.4 10^3/ul (1.6-7.5); SEGMENTED NEUTROPHILS (M) % 69 % (39-77); SMUDGE%M 9 % (0-0)
[2018-12-15 18:02] LABS: URINE BLOOD (Dip) POC Trace-lysed (NEGATIVE); URINE GLUCOSE (Dip) POC Negative (NEGATIVE); URINE KETONES (Dip) POC Negative (NEGATIVE); URINE LEUKOCYTE EST (Dip) POC Negative (NEGATIVE); URINE NITRITE (Dip) POC Negative (NEGATIVE); URINE TOTAL PROTEIN POC 1+ (NEGATIVE)
[2018-12-15 18:02] LABS: URINE PH (Dip) POC 5.5 (5.0-8.5)
[2018-12-15] MEDS: CEFTRIAXONE 1 GM/50 ML (PMX) 50 ML IVPB (18:35)
[2018-12-15] MEDS ORDERED: NITROGLYCERIN (SL) 0.4 MG TAB SL (19:00)
[2018-12-15] MEDS ORDERED: LORAZEPAM 2 MG INJ IV (19:00)
[2018-12-15] MEDS ORDERED: MAGNESIUM HYDROXIDE 30ML CUP PO (19:00)
[2018-12-15] MEDS ORDERED: VANCOMYCIN IV PER PHARMACY XX (19:00)
[2018-12-15] MEDS ORDERED: NACL 0.9% 3 ML SYG IV (19:00)
[2018-12-15] MEDS ORDERED: DOCUSATE SODIUM 100 MG CAP PO (19:00)
[2018-12-15] MEDS ORDERED: hydrALAzine 20 MG INJ IV (19:00)
[2018-12-15] MEDS ORDERED: ONDANSETRON 4 MG INJ IV (19:00)
[2018-12-15] MEDS ORDERED: morphine 2 MG INJ IV (19:00)
[2018-12-15] MEDS ORDERED: FUROSEMIDE 40 MG TAB PO (19:00)
[2018-12-15] MEDS ORDERED: ZOLPIDEM 5 MG TAB PO (20:00)
[2018-12-15 20:02] LABS: FREE T4 (FREE THYROXINE) 0.99 ng/dl (0.64-1.79)
[2018-12-15] MEDS: ALBUTEROL/IPRATROPIUM (NEB) 3 ML AMP HHN (21:39)
[2018-12-15] MEDS: NICOTINE (14 MG/24 HR) PATCH TRANSDERM (22:03)
[2018-12-15] MEDS: SOD CHLORIDE 0.45% 1,000 ML IV (22:04)
[2018-12-15] MEDS: HYDROCODONE/APAP (5/325) TAB PO (22:05)
[2018-12-15] MEDS: CEPASTAT LOZENGE MT (22:06)
[2018-12-15] MEDS: PIPER-TAZO 3.375 GM IV (PMX) 100 ML IVPB (23:55)
[2018-12-16] MEDS: VANCOMYCIN HCL 1.25 GM in SOD CHLORIDE 0.9% 250 ML IVPB (00:49)
[2018-12-16 01:12] LABS: LACTIC ACID 0.7 mmol/L (0.5-2.0)
[2018-12-16 03:07] LABS: LACTIC ACID 1.1 mmol/L (0.5-2.0)
[2018-12-16] MEDS: CEPASTAT LOZENGE MT (04:41)
[2018-12-16] MEDS: PIPER-TAZO 3.375 GM IV (PMX) 100 ML IVPB (06:05)
[2018-12-16 07:25] LABS: ADD MAN DIFF? NO
[2018-12-16 07:33] LABS: BASOPHIL # 0.1 10^3/ul (0.0-0.1); BASOPHILS % 0.9 % (0.0-2.0); EOSINOPHILS % 0.3 % (0.0-7.0); HEMATOCRIT 35.6 % (42.0-52.0); HEMOGLOBIN 10.8 g/dl (14.0-18.0); LYMPHOCYTES # 1.3 10^3/ul (0.8-2.9); LYMPHOCYTES % 19.9 % (15.0-51.0); MEAN CORPUSCULAR HEMOGLOBIN 22.9 pg (29.0-33.0); MEAN CORPUSCULAR HGB CONC 30.3 g/dl (32.0-37.0); MEAN CORPUSCULAR VOLUME 75.4 fl (82.0-101.0); MEAN PLATELET VOLUME 9.3 fl (7.4-10.4); MONOCYTE # 1.1 10^3/ul (0.3-0.9); MONOCYTES % 17.6 % (0.0-11.0); NEUTROPHIL # 3.9 10^3/ul (1.6-7.5); NEUTROPHILS % 60.8 % (39.0-77.0); PLATELET COUNT 336 10^3/UL (140-415); RED BLOOD COUNT 4.72 10^6/ul (4.70-6.10); RED CELL DISTRIBUTION WIDTH 18.4 % (11.5-14.5)
[2018-12-16 07:33] LABS: WHITE BLOOD COUNT 6.5 10^3/ul (4.8-10.8)
[2018-12-16 07:53] LABS: HEMOGLOBIN A1C 5.8 % (0-5.9)
[2018-12-16 07:58] LABS: CHOLESTEROL 124 mg/dl (100-200)
[2018-12-16 07:58] LABS: CHOL/HDL RATIO 5.9 RATIO; HDL CHOLESTEROL 21 mg/dl (27-67); LDL CHOLESTEROL,CALCULATED 89 mg/dl; TRIGLYCERIDES 70 mg/dl (0-149)
[2018-12-16 08:00] LABS: LACTIC ACID 1.2 mmol/L (0.5-2.0)
[2018-12-16 08:08] LABS: ANION GAP 9 (5-13); BLOOD UREA NITROGEN 16 mg/dl (7-20); CALCIUM 8.5 mg/dl (8.4-10.2); CARBON DIOXIDE 26 mmol/L (21-31); CHLORIDE 102 mmol/L (97-110); CREATININE 1.09 mg/dl (0.61-1.24); Estimated GFR > 60 mL/min (>60); GLUCOSE 88 mg/dl (70-220); PHOSPHORUS 4.5 mg/dl (2.5-4.9); POTASSIUM 4.2 mmol/L (3.5-5.1); SODIUM 137 mmol/L (135-144)
[2018-12-16 08:29] LABS: THYROID STIMULATING HORMONE 0.834 MIU/L (0.465-4.680)
[2018-12-16] MEDS: LISINOPRIL 10 MG TAB PO (08:34)
[2018-12-16] MEDS: SOD CHLORIDE 0.45% 1,000 ML IV (08:35)
[2018-12-16] MEDS ORDERED: FERROUS GLUCONATE (EC) 325 MG TAB PO (09:00)
[2018-12-16] MEDS ORDERED: VANCOMYCIN 1 GM 250 ML IVPB (12:00)
[2018-12-16] MEDS ORDERED: DIGOXIN 0.125 MG TAB PO (13:00)
== END 2018-12-16 11:08 | disposition left against medical advice (07) | DRG 864 ==
LOC: E/R 14:43 → TEL 20:14
DX: R50.9 Fever, unspecified (principal); R65.10 Systemic inflammatory response syndrome (SIRS) of non-infectious origin without acute organ dysfunction; I42.9 Cardiomyopathy, unspecified; I25.2 Old myocardial infarction; Z72.0 Tobacco use; Z95.810 Presence of automatic (implantable) cardiac defibrillator; F15.10 Other stimulant abuse, uncomplicated
CPT/HCPCS: 36415; 71045; 80048; 80053; 80061; 81003; 83036; 83605; 83735; 84100; 84439; 84443; 84484; 85025; 85610; 85730; 87040-91; 87081; 87400; 93005; 94664; 96374; 99285-25

== ENCOUNTER 2019-03-22 23:48 | Inpatient (IN) | payer OTHER ==
[2019-03-23 00:11] LABS: ADD MAN DIFF? NO
[2019-03-23 00:13] LABS: WHITE BLOOD COUNT 9.4 10^3/ul (4.8-10.8)
[2019-03-23 00:13] LABS: BASOPHIL # 0.1 10^3/ul (0.0-0.1); BASOPHILS % 0.7 % (0.0-2.0); EOSINOPHILS # 0.4 10^3/ul (0.0-0.5); EOSINOPHILS % 4.1 % (0.0-7.0); HEMATOCRIT 43.8 % (42.0-52.0); HEMOGLOBIN 13.5 g/dl (14.0-18.0); LYMPHOCYTES # 2.3 10^3/ul (0.8-2.9); LYMPHOCYTES % 24.1 % (15.0-51.0); MEAN CORPUSCULAR HEMOGLOBIN 24.9 pg (29.0-33.0); MEAN CORPUSCULAR HGB CONC 30.8 g/dl (32.0-37.0); MEAN CORPUSCULAR VOLUME 80.8 fl (82.0-101.0); MEAN PLATELET VOLUME 9.2 fl (7.4-10.4); MONOCYTE # 0.4 10^3/ul (0.3-0.9); MONOCYTES % 4.4 % (0.0-11.0); NEUTROPHIL # 6.2 10^3/ul (1.6-7.5); NEUTROPHILS % 66.4 % (39.0-77.0); PLATELET COUNT 300 10^3/UL (140-415); RED BLOOD COUNT 5.42 10^6/ul (4.70-6.10); RED CELL DISTRIBUTION WIDTH 18.3 % (11.5-14.5)
[2019-03-23] MEDS: FUROSEMIDE 20 MG INJ IV ×3 (00:21→20:25)
[2019-03-23 00:33] LABS: ALANINE AMINOTRANSFERASE 33 IU/L (13-69); ALBUMIN 4.1 g/dl (3.3-4.9); ALBUMIN/GLOBULIN RATIO 1.07; ALKALINE PHOSPHATASE 116 IU/L (42-121); ANION GAP 9 (5-13); ASPARTATE AMINO TRANSFERASE 28 IU/L (15-46); BILIRUBIN,INDIRECT 1.6 mg/dl (0-1.1); BILIRUBIN,TOTAL 1.6 mg/dl (0.2-1.3); BLOOD UREA NITROGEN 21 mg/dl (7-20); CALCIUM 9.2 mg/dl (8.4-10.2); CARBON DIOXIDE 26 mmol/L (21-31); CHLORIDE 107 mmol/L (97-110); CREATININE 1.25 mg/dl (0.61-1.24); Estimated GFR > 60 mL/min (>60); GLUCOSE 104 mg/dl (70-220); POTASSIUM 4.5 mmol/L (3.5-5.1); SODIUM 142 mmol/L (135-144); TOTAL PROTEIN 7.9 g/dl (6.1-8.1)
[2019-03-23 00:44] LABS: B-TYPE NATRIURETIC PEPTIDE 3780 PG/ML (0-125)
[2019-03-23] MEDS ORDERED: ACETAMINOPHEN 325 MG TAB PO ×2 (02:00→04:30)
[2019-03-23] MEDS ORDERED: ONDANSETRON 4 MG INJ IV ×2 (02:00→04:30)
[2019-03-23] MEDS ORDERED: FUROSEMIDE 40 MG TAB PO (04:30)
[2019-03-23] MEDS ORDERED: ALBUTEROL/IPRATROPIUM (NEB) 3 ML AMP HHN (04:30)
[2019-03-23] MEDS ORDERED: NACL 0.9% 3 ML SYG IV (04:30)
[2019-03-23] MEDS ORDERED: NITROGLYCERIN (SL) 0.4 MG TAB SL (04:30)
[2019-03-23 04:37] LABS: ADD MAN DIFF? NO
[2019-03-23 04:39] LABS: BASOPHIL # 0.1 10^3/ul (0.0-0.1); BASOPHILS % 0.9 % (0.0-2.0); EOSINOPHILS # 0.4 10^3/ul (0.0-0.5); EOSINOPHILS % 4.2 % (0.0-7.0); HEMATOCRIT 45.7 % (42.0-52.0); HEMOGLOBIN 14.1 g/dl (14.0-18.0); LYMPHOCYTES # 1.9 10^3/ul (0.8-2.9); LYMPHOCYTES % 21.2 % (15.0-51.0); MEAN CORPUSCULAR HEMOGLOBIN 24.6 pg (29.0-33.0); MEAN CORPUSCULAR HGB CONC 30.9 g/dl (32.0-37.0); MEAN CORPUSCULAR VOLUME 79.6 fl (82.0-101.0); MEAN PLATELET VOLUME 9.1 fl (7.4-10.4); MONOCYTE # 0.4 10^3/ul (0.3-0.9); MONOCYTES % 3.9 % (0.0-11.0); NEUTROPHIL # 6.3 10^3/ul (1.6-7.5); NEUTROPHILS % 69.5 % (39.0-77.0); PLATELET COUNT 318 10^3/UL (140-415); RED BLOOD COUNT 5.74 10^6/ul (4.70-6.10); RED CELL DISTRIBUTION WIDTH 18.2 % (11.5-14.5)
[2019-03-23 04:55] LABS: CREATINE KINASE 77 IU/L (23-200)
[2019-03-23 05:08] LABS: CK-MB 2.31 ng/ml (0.0-2.4); TROPONIN-I 0.072 ng/ml (0.000-0.120)
[2019-03-23] MEDS: FERROUS SULFATE (EC) 325 MG TAB PO (08:22)
[2019-03-23] MEDS: LISINOPRIL 10 MG TAB PO (08:22)
[2019-03-23] MEDS: HEPARIN 5,000 UNIT/1 ML VIAL SC ×2 (09:09→20:31)
[2019-03-23 10:19] LABS: ALANINE AMINOTRANSFERASE 32 IU/L (13-69); ALBUMIN 4.6 g/dl (3.3-4.9); ALBUMIN/GLOBULIN RATIO 1.09; ALKALINE PHOSPHATASE 135 IU/L (42-121); ANION GAP 14 (5-13); ASPARTATE AMINO TRANSFERASE 70 IU/L (15-46); BILIRUBIN,INDIRECT 1.6 mg/dl (0-1.1); BILIRUBIN,TOTAL 1.6 mg/dl (0.2-1.3); BLOOD UREA NITROGEN 23 mg/dl (7-20); CALCIUM 9.8 mg/dl (8.4-10.2); CARBON DIOXIDE 23 mmol/L (21-31); CHLORIDE 106 mmol/L (97-110); CREATININE 1.15 mg/dl (0.61-1.24); Estimated GFR > 60 mL/min (>60); GLUCOSE 106 mg/dl (70-220); MAGNESIUM 2.1 mg/dl (1.7-2.5); POTASSIUM 4.5 mmol/L (3.5-5.1); SODIUM 143 mmol/L (135-144); TOTAL PROTEIN 8.8 g/dl (6.1-8.1)
[2019-03-23] MEDS: DIGOXIN 0.125 MG TAB PO (13:16)
[2019-03-24] MEDS: FUROSEMIDE 20 MG INJ IV (05:06)
== END 2019-03-24 08:00 | disposition left against medical advice (07) | DRG 292 ==
LOC: E/R 23:48 → TEL 03-23 01:59
DX: I11.0 Hypertensive heart disease with heart failure (principal); N17.9 Acute kidney failure, unspecified; I50.43 Acute on chronic combined systolic (congestive) and diastolic (congestive) heart failure; I42.9 Cardiomyopathy, unspecified; Z95.810 Presence of automatic (implantable) cardiac defibrillator; F17.200 Nicotine dependence, unspecified, uncomplicated
CPT/HCPCS: 36415; 71045; 80053; 82550; 82553; 83735; 83880; 84484; 85025; 93005; 96374; 99285-25

== ENCOUNTER 2019-04-01 21:52 | Inpatient (IN) | payer OTHER ==
[2019-04-01 22:35] LABS: ADD MAN DIFF? NO
[2019-04-01 22:38] LABS: WHITE BLOOD COUNT 7.1 10^3/ul (4.8-10.8)
[2019-04-01 22:38] LABS: BASOPHIL # 0.1 10^3/ul (0.0-0.1); EOSINOPHILS # 0.2 10^3/ul (0.0-0.5); EOSINOPHILS % 2.3 % (0.0-7.0); HEMATOCRIT 40.8 % (42.0-52.0); HEMOGLOBIN 12.9 g/dl (14.0-18.0); LYMPHOCYTES # 2.5 10^3/ul (0.8-2.9); LYMPHOCYTES % 35.3 % (15.0-51.0); MEAN CORPUSCULAR HGB CONC 31.6 g/dl (32.0-37.0); MEAN CORPUSCULAR VOLUME 82.3 fl (82.0-101.0); MEAN PLATELET VOLUME 9.7 fl (7.4-10.4); MONOCYTE # 0.5 10^3/ul (0.3-0.9); MONOCYTES % 6.5 % (0.0-11.0); NEUTROPHIL # 3.9 10^3/ul (1.6-7.5); NEUTROPHILS % 54.6 % (39.0-77.0); PLATELET COUNT 293 10^3/UL (140-415); RED BLOOD COUNT 4.96 10^6/ul (4.70-6.10); RED CELL DISTRIBUTION WIDTH 17.7 % (11.5-14.5)
[2019-04-01] MEDS: ALBUTEROL 0.5% (NEB) 2.5 MG/0.5 ML AMP INH (22:41)
[2019-04-01] MEDS: FUROSEMIDE 40 MG INJ IV (22:45)
[2019-04-01 22:55] LABS: ANION GAP 10 (5-13); BLOOD UREA NITROGEN 19 mg/dl (7-20); CALCIUM 9.1 mg/dl (8.4-10.2); CARBON DIOXIDE 27 mmol/L (21-31); CHLORIDE 103 mmol/L (97-110); CREATININE 1.52 mg/dl (0.61-1.24); Estimated GFR 51 mL/min (>60); GLUCOSE 101 mg/dl (70-220); SODIUM 140 mmol/L (135-144)
[2019-04-01 23:02] LABS: DIGOXIN < 0.4 ng/ml (1.0-2.0)
[2019-04-01 23:07] LABS: TROPONIN-I 0.042 ng/ml (0.000-0.120)
[2019-04-02] MEDS ORDERED: ACETAMINOPHEN 325 MG TAB PO ×2 (00:30→01:00)
[2019-04-02] MEDS ORDERED: ONDANSETRON 4 MG INJ IV ×2 (00:30→01:00)
[2019-04-02] MEDS: ASPIRIN 325 MG TAB PO (00:40)
[2019-04-02] MEDS ORDERED: BISACODYL (EC) 5 MG TAB PO (01:00)
[2019-04-02] MEDS ORDERED: NACL 0.9% 3 ML SYG IV (01:00)
[2019-04-02] MEDS: HEPARIN 5,000 UNIT/1 ML VIAL SC ×5 (01:00→21:01)
[2019-04-02] MEDS ORDERED: NITROGLYCERIN (SL) 0.4 MG TAB SL (01:00)
[2019-04-02] MEDS ORDERED: FUROSEMIDE 40 MG TAB PO (01:00)
[2019-04-02] MEDS ORDERED: morphine 2 MG INJ IV (01:00)
[2019-04-02] MEDS ORDERED: DOCUSATE SODIUM 100 MG CAP PO (01:00)
[2019-04-02 01:15] LABS: INR 1.12; PROTIME 14.5 Sec (11.9-14.9); PT RATIO 1.1
[2019-04-02 01:16] LABS: PARTIAL THROMBOPLASTIN TIME 31.5 Sec (23.0-35.0)
[2019-04-02 05:42] LABS: ADD MAN DIFF? NO
[2019-04-02 05:47] LABS: BASOPHIL # 0.1 10^3/ul (0.0-0.1); EOSINOPHILS # 0.2 10^3/ul (0.0-0.5); EOSINOPHILS % 2.6 % (0.0-7.0); HEMATOCRIT 40.2 % (42.0-52.0); HEMOGLOBIN 12.8 g/dl (14.0-18.0); LYMPHOCYTES # 2.1 10^3/ul (0.8-2.9); LYMPHOCYTES % 30.6 % (15.0-51.0); MEAN CORPUSCULAR HEMOGLOBIN 25.6 pg (29.0-33.0); MEAN CORPUSCULAR HGB CONC 31.8 g/dl (32.0-37.0); MEAN CORPUSCULAR VOLUME 80.4 fl (82.0-101.0); MEAN PLATELET VOLUME 9.4 fl (7.4-10.4); MONOCYTE # 0.4 10^3/ul (0.3-0.9); MONOCYTES % 5.1 % (0.0-11.0); NEUTROPHIL # 4.1 10^3/ul (1.6-7.5); NEUTROPHILS % 60.6 % (39.0-77.0); PLATELET COUNT 299 10^3/UL (140-415)
[2019-04-02 05:47] LABS: WHITE BLOOD COUNT 6.8 10^3/ul (4.8-10.8)
[2019-04-02 06:30] LABS: ETHANOL < 10.0 mg/dl (0-0)
[2019-04-02 06:32] LABS: CK-MB 1.47 ng/ml (0.0-2.4); TROPONIN-I 0.057 ng/ml (0.000-0.120)
[2019-04-02 06:36] LABS: CK INDEX 2.4; CREATINE KINASE 61 IU/L (23-200)
[2019-04-02 06:48] LABS: AMPHETAMINE/METHAMPHETAMINE Negative (NEGATIVE); BARBITURATES Negative (NEGATIVE); BENZODIAZEPINES Negative (NEGATIVE); CANNABINOIDS Negative (NEGATIVE); COCAINE Negative (NEGATIVE); OPIATES Negative (NEGATIVE)
[2019-04-02 07:08] LABS: HEMOGLOBIN A1C 5.3 % (0-5.9)
[2019-04-02 07:33] LABS: ALANINE AMINOTRANSFERASE 45 IU/L (13-69); ALBUMIN 3.9 g/dl (3.3-4.9); ALBUMIN/GLOBULIN RATIO 1.08; ALKALINE PHOSPHATASE 121 IU/L (42-121); ANION GAP 11 (5-13); ASPARTATE AMINO TRANSFERASE 33 IU/L (15-46); BILIRUBIN,INDIRECT 1.5 mg/dl (0-1.1); BILIRUBIN,TOTAL 1.5 mg/dl (0.2-1.3); BLOOD UREA NITROGEN 21 mg/dl (7-20); CALCIUM 9.2 mg/dl (8.4-10.2); CARBON DIOXIDE 24 mmol/L (21-31); CHLORIDE 105 mmol/L (97-110); CHOL/HDL RATIO 8.3 RATIO; CHOLESTEROL 184 mg/dl (100-200); CREATININE 1.31 mg/dl (0.61-1.24); Estimated GFR > 60 mL/min (>60); GLUCOSE 98 mg/dl (70-220); HDL CHOLESTEROL 22 mg/dl (27-67); LDL CHOLESTEROL,CALCULATED 141 mg/dl; POTASSIUM 3.7 mmol/L (3.5-5.1); SODIUM 140 mmol/L (135-144); TOTAL PROTEIN 7.5 g/dl (6.1-8.1); TRIGLYCERIDES 104 mg/dl (0-149)
[2019-04-02] MEDS: ASPIRIN 81 MG TAB PO (08:05)
[2019-04-02] MEDS: FERROUS SULFATE (EC) 325 MG TAB PO (08:06)
[2019-04-02] MEDS: LISINOPRIL 10 MG TAB PO (08:06)
[2019-04-02 10:15] LABS: CREATINE KINASE 56 IU/L (23-200)
[2019-04-02 10:27] LABS: CK INDEX 2.9; TROPONIN-I 0.053 ng/ml (0.000-0.120)
[2019-04-02 11:10] LABS: B-TYPE NATRIURETIC PEPTIDE 6890 PG/ML (0-125)
[2019-04-02] MEDS: DIGOXIN 0.125 MG TAB PO (13:00)
[2019-04-02] MEDS: LORAZEPAM 2 MG INJ IV (19:09)
[2019-04-03] MEDS: LORAZEPAM 2 MG INJ IV (03:15)
[2019-04-03] MEDS: HEPARIN 5,000 UNIT/1 ML VIAL SC (05:23)
[2019-04-03 06:25] LABS: ADD MAN DIFF? NO
[2019-04-03 06:38] LABS: BASOPHIL # 0.1 10^3/ul (0.0-0.1); EOSINOPHILS # 0.3 10^3/ul (0.0-0.5); EOSINOPHILS % 3.4 % (0.0-7.0); HEMATOCRIT 40.5 % (42.0-52.0); HEMOGLOBIN 12.8 g/dl (14.0-18.0); LYMPHOCYTES # 1.9 10^3/ul (0.8-2.9); LYMPHOCYTES % 26.6 % (15.0-51.0); MEAN CORPUSCULAR HEMOGLOBIN 25.5 pg (29.0-33.0); MEAN CORPUSCULAR HGB CONC 31.6 g/dl (32.0-37.0); MEAN CORPUSCULAR VOLUME 80.8 fl (82.0-101.0); MEAN PLATELET VOLUME 9.6 fl (7.4-10.4); MONOCYTE # 0.4 10^3/ul (0.3-0.9); MONOCYTES % 5.8 % (0.0-11.0); NEUTROPHIL # 4.6 10^3/ul (1.6-7.5); NEUTROPHILS % 62.9 % (39.0-77.0); PLATELET COUNT 306 10^3/UL (140-415); RED BLOOD COUNT 5.01 10^6/ul (4.70-6.10); RED CELL DISTRIBUTION WIDTH 17.6 % (11.5-14.5)
[2019-04-03 06:38] LABS: WHITE BLOOD COUNT 7.3 10^3/ul (4.8-10.8)
[2019-04-03 07:09] LABS: PHOSPHORUS 4.3 mg/dl (2.5-4.9)
[2019-04-03 07:17] LABS: ALANINE AMINOTRANSFERASE 30 IU/L (13-69); ALBUMIN 3.4 g/dl (3.3-4.9); ALBUMIN/GLOBULIN RATIO 1.03; ALKALINE PHOSPHATASE 100 IU/L (42-121); ANION GAP 9 (5-13); ASPARTATE AMINO TRANSFERASE 26 IU/L (15-46); BILIRUBIN,INDIRECT 1.1 mg/dl (0-1.1); BILIRUBIN,TOTAL 1.1 mg/dl (0.2-1.3); BLOOD UREA NITROGEN 25 mg/dl (7-20); CALCIUM 9.1 mg/dl (8.4-10.2); CARBON DIOXIDE 25 mmol/L (21-31); CHLORIDE 106 mmol/L (97-110); CREATININE 1.15 mg/dl (0.61-1.24); Estimated GFR > 60 mL/min (>60); GLUCOSE 106 mg/dl (70-220); POTASSIUM 4.2 mmol/L (3.5-5.1); SODIUM 140 mmol/L (135-144); TOTAL PROTEIN 6.7 g/dl (6.1-8.1)
[2019-04-03 07:47] LABS: B-TYPE NATRIURETIC PEPTIDE 7300 PG/ML (0-125)
[2019-04-03] MEDS: ASPIRIN 81 MG TAB PO (08:20)
[2019-04-03] MEDS: LISINOPRIL 10 MG TAB PO (08:21)
[2019-04-03] MEDS: FERROUS SULFATE (EC) 325 MG TAB PO (08:21)
== END 2019-04-03 20:24 | disposition left against medical advice (07) | DRG 293 ==
LOC: 6WM 04-02 00:18 → E/R 21:52 → 6WM 04-02 17:12
DX: I11.0 Hypertensive heart disease with heart failure (principal); I27.20 Pulmonary hypertension, unspecified; I42.9 Cardiomyopathy, unspecified; D50.9 Iron deficiency anemia, unspecified; F15.10 Other stimulant abuse, uncomplicated; F17.200 Nicotine dependence, unspecified, uncomplicated; I50.23 Acute on chronic systolic (congestive) heart failure; F41.9 Anxiety disorder, unspecified; Z91.14 Patient's other noncompliance with medication regimen; Z79.82 Long term (current) use of aspirin; Z95.810 Presence of automatic (implantable) cardiac defibrillator; Z53.21 Procedure and treatment not carried out due to patient leaving prior to being seen by health care provider
CPT/HCPCS: 36415; 71045; 80048; 80053; 80061; 80162; 80307; 82306; 82550; 82553; 83036; 83735; 83880; 84100; 84443; 84484; 85025; 85610; 85730; 93005; 93306; 94644; 94660; 96374; 99285-25; G0378

== ENCOUNTER 2019-05-18 19:19 | Inpatient (IN) | payer OTHER ==
[2019-05-18 19:48] LABS: ADD MAN DIFF? NO
[2019-05-18 19:51] LABS: WHITE BLOOD COUNT 6.9 10^3/ul (4.8-10.8)
[2019-05-18 19:51] LABS: BASOPHIL # 0.1 10^3/ul (0.0-0.1); BASOPHILS % 0.9 % (0.0-2.0); EOSINOPHILS # 0.2 10^3/ul (0.0-0.5); EOSINOPHILS % 2.7 % (0.0-7.0); HEMATOCRIT 41.9 % (42.0-52.0); HEMOGLOBIN 13.5 g/dl (14.0-18.0); LYMPHOCYTES # 1.7 10^3/ul (0.8-2.9); LYMPHOCYTES % 24.8 % (15.0-51.0); MEAN CORPUSCULAR HGB CONC 32.2 g/dl (32.0-37.0); MEAN CORPUSCULAR VOLUME 83.8 fl (82.0-101.0); MEAN PLATELET VOLUME 9.6 fl (7.4-10.4); MONOCYTE # 0.3 10^3/ul (0.3-0.9); MONOCYTES % 4.8 % (0.0-11.0); NEUTROPHIL # 4.6 10^3/ul (1.6-7.5); NEUTROPHILS % 66.5 % (39.0-77.0); PLATELET COUNT 260 10^3/UL (140-415); RED CELL DISTRIBUTION WIDTH 17.9 % (11.5-14.5)
[2019-05-18 20:21] LABS: ANION GAP 8 (5-13); BLOOD UREA NITROGEN 18 mg/dl (7-20); CALCIUM 9.4 mg/dl (8.4-10.2); CARBON DIOXIDE 27 mmol/L (21-31); CHLORIDE 103 mmol/L (97-110); CREATININE 1.05 mg/dl (0.61-1.24); Estimated GFR > 60 mL/min (>60); GLUCOSE 122 mg/dl (70-220); SODIUM 138 mmol/L (135-144)
[2019-05-18 20:33] LABS: TROPONIN-I 0.033 ng/ml (0.000-0.120)
[2019-05-18] MEDS: ALBUTEROL 0.083% (NEB) 2.5 MG/3 ML AMP NEB (20:53)
[2019-05-18] MEDS ORDERED: ACETAMINOPHEN 325 MG TAB PO ×2 (22:00→23:00)
[2019-05-18] MEDS ORDERED: ONDANSETRON 4 MG INJ IV ×2 (22:00→23:00)
[2019-05-18] MEDS ORDERED: NITROGLYCERIN (SL) 0.4 MG TAB SL (23:00)
[2019-05-18] MEDS ORDERED: NACL 0.9% 3 ML SYG IV (23:00)
[2019-05-18] MEDS ORDERED: FUROSEMIDE 40 MG TAB PO (23:00)
[2019-05-18] MEDS: LORAZEPAM 1 MG TAB PO (23:59)
[2019-05-19 01:50] LABS: CREATINE KINASE 52 IU/L (23-200)
[2019-05-19 02:02] LABS: CK INDEX 2.2; CK-MB 1.12 ng/ml (0.0-2.4); TROPONIN-I 0.024 ng/ml (0.000-0.120)
[2019-05-19] MEDS: FERROUS SULFATE (EC) 325 MG TAB PO (08:17)
[2019-05-19] MEDS: LISINOPRIL 10 MG TAB PO (08:18)
[2019-05-19] MEDS: HEPARIN 5,000 UNIT/1 ML VIAL SC (08:22)
[2019-05-19 08:41] LABS: ADD MAN DIFF? NO
[2019-05-19 08:43] LABS: WHITE BLOOD COUNT 8.6 10^3/ul (4.8-10.8)
[2019-05-19 08:43] LABS: BASOPHIL # 0.1 10^3/ul (0.0-0.1); BASOPHILS % 0.7 % (0.0-2.0); EOSINOPHILS # 0.1 10^3/ul (0.0-0.5); EOSINOPHILS % 1.5 % (0.0-7.0); HEMATOCRIT 44.7 % (42.0-52.0); HEMOGLOBIN 14.3 g/dl (14.0-18.0); LYMPHOCYTES # 1.7 10^3/ul (0.8-2.9); LYMPHOCYTES % 19.6 % (15.0-51.0); MEAN CORPUSCULAR HEMOGLOBIN 27.1 pg (29.0-33.0); MEAN CORPUSCULAR VOLUME 84.7 fl (82.0-101.0); MEAN PLATELET VOLUME 9.5 fl (7.4-10.4); MONOCYTE # 0.3 10^3/ul (0.3-0.9); MONOCYTES % 3.7 % (0.0-11.0); NEUTROPHIL # 6.3 10^3/ul (1.6-7.5); NEUTROPHILS % 74.1 % (39.0-77.0); PLATELET COUNT 274 10^3/UL (140-415); RED BLOOD COUNT 5.28 10^6/ul (4.70-6.10); RED CELL DISTRIBUTION WIDTH 18.2 % (11.5-14.5)
[2019-05-19 10:56] LABS: ALANINE AMINOTRANSFERASE 32 IU/L (13-69); ALBUMIN 3.9 g/dl (3.3-4.9); ALBUMIN/GLOBULIN RATIO 1.08; ALKALINE PHOSPHATASE 131 IU/L (42-121); ANION GAP 8 (5-13); ASPARTATE AMINO TRANSFERASE 31 IU/L (15-46); BILIRUBIN,INDIRECT 2.4 mg/dl (0-1.1); BILIRUBIN,TOTAL 2.4 mg/dl (0.2-1.3); BLOOD UREA NITROGEN 19 mg/dl (7-20); CALCIUM 9.5 mg/dl (8.4-10.2); CARBON DIOXIDE 24 mmol/L (21-31); CHLORIDE 104 mmol/L (97-110); CREATINE KINASE 66 IU/L (23-200); CREATININE 0.97 mg/dl (0.61-1.24); Estimated GFR > 60 mL/min (>60); GLUCOSE 111 mg/dl (70-220); POTASSIUM 4.5 mmol/L (3.5-5.1); SODIUM 136 mmol/L (135-144); TOTAL PROTEIN 7.5 g/dl (6.1-8.1)
[2019-05-19 11:07] LABS: CK INDEX 2.8; CK-MB 1.87 ng/ml (0.0-2.4); TROPONIN-I 0.032 ng/ml (0.000-0.120)
[2019-05-19] MEDS ORDERED: IPRATROPIUM (NEB) 0.5 MG/2.5 ML AMP HHN (13:00)
[2019-05-19] MEDS: DIGOXIN 0.125 MG TAB PO (13:01)
[2019-05-19] MEDS: LEVALBUTEROL (NEB) 0.31 MG/3 ML AMP HHN ×2 (14:00→19:41)
[2019-05-19] MEDS: IPRATROPIUM (NEB) 0.5 MG/2.5 ML AMP HHN ×2 (14:00→19:41)
[2019-05-19] MEDS: DOXYCYCLINE 100 MG TAB PO ×2 (14:56→20:27)
[2019-05-19] MEDS: APIXABAN 5 MG TABLET PO (20:27)
[2019-05-20] MEDS: LEVALBUTEROL (NEB) 0.31 MG/3 ML AMP HHN (01:11)
[2019-05-20] MEDS: LORAZEPAM 0.5 MG TAB PO (01:34)
[2019-05-20] MEDS: IPRATROPIUM (NEB) 0.5 MG/2.5 ML AMP HHN (07:16)
[2019-05-20] MEDS: ASPIRIN (EC) 81 MG TAB PO (08:49)
[2019-05-20] MEDS: DOXYCYCLINE 100 MG TAB PO ×2 (08:49→21:06)
[2019-05-20] MEDS: LISINOPRIL 10 MG TAB PO (08:49)
[2019-05-20] MEDS: FERROUS SULFATE (EC) 325 MG TAB PO (08:49)
[2019-05-20] MEDS: FUROSEMIDE 20 MG INJ IV (08:50)
[2019-05-20] MEDS: DIGOXIN 0.125 MG TAB PO (12:30)
[2019-05-20 13:18] LABS: ANION GAP 8 (5-13); BLOOD UREA NITROGEN 24 mg/dl (7-20); CALCIUM 8.4 mg/dl (8.4-10.2); CARBON DIOXIDE 25 mmol/L (21-31); CHLORIDE 101 mmol/L (97-110); CREATININE 1.15 mg/dl (0.61-1.24); Estimated GFR > 60 mL/min (>60); GLUCOSE 173 mg/dl (70-220); MAGNESIUM 1.9 mg/dl (1.7-2.5); POTASSIUM 4.1 mmol/L (3.5-5.1); SODIUM 134 mmol/L (135-144)
[2019-05-20] MEDS: LORAZEPAM 2 MG INJ IV (18:39)
[2019-05-20] MEDS: MAGNESIUM SULFATE 2 GM/50 ML 50 ML IVPB (18:40)
[2019-05-21] MEDS: LEVALBUTEROL (NEB) 0.63 MG/3 ML AMP HHN (04:53)
[2019-05-21 06:07] LABS: ADD MAN DIFF? NO
[2019-05-21 06:19] LABS: WHITE BLOOD COUNT 7.9 10^3/ul (4.8-10.8)
[2019-05-21 06:19] LABS: BASOPHIL # 0.1 10^3/ul (0.0-0.1); BASOPHILS % 0.9 % (0.0-2.0); EOSINOPHILS # 0.3 10^3/ul (0.0-0.5); EOSINOPHILS % 4.1 % (0.0-7.0); HEMATOCRIT 45.6 % (42.0-52.0); HEMOGLOBIN 14.6 g/dl (14.0-18.0); LYMPHOCYTES # 2.1 10^3/ul (0.8-2.9); LYMPHOCYTES % 26.1 % (15.0-51.0); MEAN CORPUSCULAR HEMOGLOBIN 27.3 pg (29.0-33.0); MEAN CORPUSCULAR VOLUME 85.4 fl (82.0-101.0); MEAN PLATELET VOLUME 9.6 fl (7.4-10.4); MONOCYTE # 0.4 10^3/ul (0.3-0.9); MONOCYTES % 4.6 % (0.0-11.0); NEUTROPHIL # 5.1 10^3/ul (1.6-7.5); PLATELET COUNT 278 10^3/UL (140-415); RED BLOOD COUNT 5.34 10^6/ul (4.70-6.10); RED CELL DISTRIBUTION WIDTH 18.1 % (11.5-14.5)
[2019-05-21 06:56] LABS: ALANINE AMINOTRANSFERASE 36 IU/L (13-69); ALBUMIN 3.3 g/dl (3.3-4.9); ALKALINE PHOSPHATASE 113 IU/L (42-121); ANION GAP 9 (5-13); ASPARTATE AMINO TRANSFERASE 28 IU/L (15-46); BILIRUBIN,INDIRECT 1.4 mg/dl (0-1.1); BILIRUBIN,TOTAL 1.4 mg/dl (0.2-1.3); BLOOD UREA NITROGEN 27 mg/dl (7-20); CALCIUM 8.5 mg/dl (8.4-10.2); CARBON DIOXIDE 23 mmol/L (21-31); CHLORIDE 104 mmol/L (97-110); CREATININE 1.19 mg/dl (0.61-1.24); Estimated GFR > 60 mL/min (>60); GLUCOSE 104 mg/dl (70-220); POTASSIUM 4.5 mmol/L (3.5-5.1); SODIUM 136 mmol/L (135-144); TOTAL PROTEIN 6.8 g/dl (6.1-8.1)
[2019-05-21 07:19] LABS: MAGNESIUM 2.1 mg/dl (1.7-2.5)
== END 2019-05-21 07:30 | disposition left against medical advice (07) | DRG 291 ==
LOC: 6WM 21:34 → E/R 19:19
DX: I11.0 Hypertensive heart disease with heart failure (principal); J96.90 Respiratory failure, unspecified, unspecified whether with hypoxia or hypercapnia; I47.2 Ventricular tachycardia; I50.23 Acute on chronic systolic (congestive) heart failure; J20.9 Acute bronchitis, unspecified; I42.9 Cardiomyopathy, unspecified; Z95.810 Presence of automatic (implantable) cardiac defibrillator; F15.90 Other stimulant use, unspecified, uncomplicated; Z91.14 Patient's other noncompliance with medication regimen; F17.200 Nicotine dependence, unspecified, uncomplicated; E80.6 Other disorders of bilirubin metabolism; Z72.0 Tobacco use; I27.20 Pulmonary hypertension, unspecified; Z86.74 Personal history of sudden cardiac arrest; I34.0 Nonrheumatic mitral (valve) insufficiency
CPT/HCPCS: 36415; 71045; 80048; 80053; 80076; 82550; 82553; 83735; 84484; 85025; 93005; 94640; 94664; 99285-25; G0378